=== PATIENT | female | born 1985 | race African-American/Black ===

== ENCOUNTER 2024-12-07 09:59 | Emergency (ER) | payer BC ==
[~2024-12-07] VITALS: Ht 157.5 cm; Wt 67.0 kg
[2024-12-07 10:02] VITALS: O2SAT 99
[2024-12-07 10:32] VITALS: TEMP 36.4; O2SAT 99
[2024-12-07 12:35] VITALS: BP 159/111; PULSE 102; RESP 16
[2024-12-07] MEDS: HYDROCODONE/ACETAMINOPHEN 5/325MG TABLET PO ONE (12:35)
[2024-12-07] MEDS ORDERED: LIDO700A15 TP (13:27)
[2024-12-07] MEDS ORDERED: GABA-529 MT (13:27)
== END 2024-12-07 14:08 | disposition home or self-care (01) ==
LOC: ER 09:59
DX: M54.50 Low back pain, unspecified (principal); Z88.5 Allergy status to narcotic agent; Z88.6 Allergy status to analgesic agent; V49.40XA Driver injured in collision with unspecified motor vehicles in traffic accident, initial encounter; Y93.89 Activity, other specified; Y92.89 Other specified places as the place of occurrence of the external cause; Y99.8 Other external cause status
CPT/HCPCS: 99283